=== PATIENT | female | born 1985 | race Caucasian/White ===

== ENCOUNTER 2016-10-12 14:05 | Day surgery (SDC) | payer OTHER ==
[~2016-10-12] VITALS: Ht 167.6 cm; Wt 118.0 kg
[2016-10-12] MEDS ORDERED: LACTATED RINGERS 1,000 ML IV SCH (14:32)
[2016-10-12 14:34] VITALS: BP 124/88
[2016-10-12] MEDS ORDERED: SILVER NITRATE STICK TP ONE (15:23)
[2016-10-12] MEDS ORDERED: EPINEPHRINE 1 MG/ML, 1ML ONE (15:23)
[2016-10-12] MEDS ORDERED: BUPIVACAINE/PF 0.25% ONE (15:23)
[2016-10-12] MEDS ORDERED: CYCL-259 PO (15:43)
[2016-10-12] MEDS ORDERED: ALPR-475 PO (15:43)
[2016-10-12] MEDS ORDERED: MULT-6 PO (15:43)
[2016-10-12] MEDS ORDERED: ONDA4TAB7 PO (15:43)
[2016-10-12] MEDS ORDERED: TRAM50TA2 PO (15:43)
[2016-10-12] MEDS ORDERED: FENTANYL PF 100 MCG/2ML ONE ×3 (15:57→18:34)
[2016-10-12] MEDS ORDERED: MIDAZOLAM 1 MG/ML, 2ML ONE (15:57)
[2016-10-12] MEDS ORDERED: OXYcodone 5 MG/5 ML ORAL.SOL UDC PO PRN (16:30)
[2016-10-12] MEDS ORDERED: HYDROmorphone 1 MG/ML, 1ML IV PRN (16:30)
[2016-10-12] MEDS ORDERED: ONDANSETRON 2MG/ML, 2ML IVPush PRN (16:30)
[2016-10-12] MEDS ORDERED: PROMETHAZINE 25 MG/ML, 1ML IV PRN (16:30)
[2016-10-12] MEDS ORDERED: FENTANYL PF 100 MCG/2ML IV PRN (16:30)
[2016-10-12] MEDS ORDERED: ROCURONIUM 10 MG/ML ONE (16:40)
[2016-10-12] MEDS ORDERED: CEFAZOLIN 1,000 MG ONE (16:40)
[2016-10-12] MEDS ORDERED: NEOSTIGMINE 1 MG/ML, 10ML ONE (16:40)
[2016-10-12] MEDS ORDERED: GLYCOPYRROLATE 0.2MG/1ML ONE (16:40)
[2016-10-12] MEDS ORDERED: ONDANSETRON 2MG/ML, 2ML ONE (16:40)
[2016-10-12] MEDS ORDERED: DEXAMETHASONE 4 MG/ML, 1ML ONE (16:40)
[2016-10-12] MEDS ORDERED: PROPOFOL 10 MG/ML, 20ML ONE (16:40)
[2016-10-12] MEDS ORDERED: MEPERIDINE/PF 25MG/0.5ML ONE (18:34)
[2016-10-12] MEDS ORDERED: OXYcodone 5 MG/5 ML ORAL.SOL UDC ONE (18:34)
[2016-10-12] MEDS ORDERED: KETOROLAC 30 MG/1 ML ONE (19:30)
[2016-10-12] MEDS ORDERED: KETOROLAC 30 MG/1 ML IVPush ONE (19:30)
[2016-10-12] MEDS ORDERED: DIPHENHYDRAMINE 50 MG/ML, 1ML ONE (19:43)
[2016-10-12] MEDS ORDERED: DIPHENHYDRAMINE 50 MG/ML, 1ML IVPush ONE (20:00)
[2016-10-12 20:47] VITALS: BP 117/71
[2016-10-12] MEDS ORDERED: HYDROmorphone 2MG TABLET PO PRN (21:30)
[2016-10-12] MEDS ORDERED: morphine SULFATE 10 MG/ML, 1ML IV PRN (21:30)
[2016-10-12] MEDS ORDERED: HYDR2TAB29 PO ×2 (22:49→22:52)
[2016-10-12] MEDS ORDERED: ONDA4TAB13 SL (22:51)
[2016-10-13] MEDS ORDERED: KETOROLAC 30 MG/1 ML IV PRN (01:30)
== END 2016-10-12 23:30 | disposition home or self-care (01) ==
LOC: OR 14:05 → MERGE 16:00 → 4NOR 20:30 → OR 23:30
PROVIDERS: ATTEND Obstetrics & Gynecology
DX: N83.201 Unspecified ovarian cyst, right side (principal); K66.1 Hemoperitoneum; O00.20 Ovarian pregnancy without intrauterine pregnancy; M19.90 Unspecified osteoarthritis, unspecified site; Z88.6 Allergy status to analgesic agent
CPT/HCPCS: 58661; 88305; J0171; J0690; J1100; J1200; J1885; J2250; J2405; J2704; J2710; J3010; J3490

== ENCOUNTER 2016-10-19 13:50 | Emergency (ER) | payer OTHER ==
[~2016-10-19] VITALS: Ht 167.6 cm; Wt 52.8 kg
[~2016-10-19 13:50] MED LIST: ALPR-475 PO; CYCL-259 PO; HYDR2TAB29 PO; MULT-6 PO; ONDA4TAB13 SL; ONDA4TAB7 PO; TRAM50TA2 PO
[2016-10-19] MEDS ORDERED: ONDANSETRON 2MG/ML, 2ML ONE (14:23)
[2016-10-19] MEDS ORDERED: SODIUM CHLORIDE 0.9% 1,000ML IVBOLUS ONE ×2 (14:30→16:00)
[2016-10-19] MEDS ORDERED: ONDANSETRON 2MG/ML, 2ML IVPush ONE (14:30)
[2016-10-19 14:44] LABS: HEMATOCRIT 44.1 % (34.6-47.8); HEMOGLOBIN 14.7 g/dL (11.7-16.4); WHITE BLOOD COUNT 11.3 x10^3/uL (3.4-10)
[2016-10-19 15:04] LABS: ASPARTATE AMINO TRANSFERASE 8 U/L (15-37); BLOOD UREA NITROGEN 11 mg/dL (7-18)
[2016-10-19] MEDS ORDERED: OMNIPAQUE 350 MG/ML, 100ML BOTTLE ONE (18:27)
[2016-10-19 18:52] VITALS: BP 101/64
== END 2016-10-19 18:30 | disposition home or self-care (01) ==
LOC: ED 14:40
DX: R31.29 Other microscopic hematuria (principal); I95.1 Orthostatic hypotension; R10.30 Lower abdominal pain, unspecified
CPT/HCPCS: 36415; 74177; 80053; 81001; 85025; 96361; 96374; 99285; J2405; J7030; Q9967

== ENCOUNTER → 2016-11-27 | Outpatient (CLI) | payer OTHER | END | disposition home or self-care (01) | LOC: RAD 13:53 | PROVIDERS: ATTEND Obstetrics & Gynecology | DX: N97.1 Female infertility of tubal origin (principal); Q65.89 Other specified congenital deformities of hip; O00.109 Unspecified tubal pregnancy without intrauterine pregnancy | CPT/HCPCS: 74740 ==